=== PATIENT | female | born 2000 | race Caucasian/White ===

== ENCOUNTER 2023-06-16 09:04 | Emergency (ER) | payer MEDICAID ==
[~2023-06-16] VITALS: Ht 172.7 cm; Wt 70.9 kg
[2023-06-16 09:11] VITALS: BP 100/56; PULSE 95; TEMP 97.9
[2023-06-16] MEDS ORDERED: KLONOPIN 0.5MG0.5 MG PO (15:59)
[2023-06-16] MEDS ORDERED: PROZAC 20MG20 MG PO (16:00)
[2023-06-16] MEDS ORDERED: ATARAX50 MG PO (16:00)
[2023-06-16] MEDS ORDERED: QUALITY CHOICE1 TA7 (16:01)
[2023-06-24] MEDS ORDERED: CEFTIN 250250 MG/TAB PO (18:35)
== END 2023-06-16 11:35 | disposition home or self-care (01) ==
LOC: COL.ER 09:04
DX: O9A.411 Sexual abuse complicating pregnancy, first trimester (principal); Z3A.12 12 weeks gestation of pregnancy